=== PATIENT | male | born 1985 | race African-American/Black ===

== ENCOUNTER 2018-10-11 20:03 | Emergency (ER) | payer OTHER ==
--- NOTE | 2018-10-11 20:18 | PDOC ---
Rapid Medical Evaluation Medical Evaluation: I have performed a brief in-person evaluation of this patient. The patient presents with a chief complaint of: no sig pmh; states metal box fell on R knee Pertinent physical exam findings: Pain on ambulating R knee, no deformity, no swelling I have ordered the following: R knee xray, motrin The patient will proceed to the ED for further evaluation. 10/11/18 20:15
[2018-10-11 20:19] VITALS: BP 120/94; PULSE 70; TEMP 97.9; BMI 27.3
[2018-10-11] MEDS ORDERED: IBUPROFEN 400 MG TABLET (FP) PO ONE ×2 (20:19→21:08)
--- NOTE | 2018-10-11 21:11 | PDOC ---
History of Present Illness - General Chief Complaint: Pain, Acute Stated Complaint: R KNEE AND FOOT INJURY Time Seen by Provider: 10/11/18 20:15 - History of Present Illness Initial Comments: 10/11/18 21:08 33-year-old male without comorbidities presents for evaluation of leg pain. 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 He complains of pain anterior right leg and Past History - Past Medical History Allergies/Adverse Reactions: Allergies Allergy/AdvReac Type Severity Reaction Status Date / Time No Known Allergies Allergy Verified 10/11/18 20:17 Home Medications: Ambulatory Orders NK [No Known Home Medication] 10/11/18 COPD: No - Suicide/Smoking/Psychosocial Hx Smoking History: Never smoked Review of Systems - Review of Systems Musculoskeletal: Yes: See HPI *Physical Exam - Vital Signs Last Vital Signs Temp Pulse Resp BP Pulse Ox 97.9 F 70 18 120/94 100 10/11/18 20:17 10/11/18 20:17 10/11/18 20:17 10/11/18 20:17 10/11/18 20:17 - Physical Exam Comments: 10/11/18 21:08 Right knee lower leg foot and ankle skin color and temperature are normal. There are no abrasions. The patient is tender diffusely even to light touch which seems out of proportion to the examination. He refuses to move his ankle. His knee bends from 90 and he does have full extension. He is able to angulate and walk. He has no evidence of instability or gross sensorimotor deficits. He wiggles his toes. His calf is floppy. Moderate Sedation - Procedure Monitoring Vital Signs: Procedure Monitoring Vital Signs Temperature 97.9 F 10/11/18 20:17 Pulse Rate 70 10/11/18 20:17 Respiratory Rate 18 10/11/18 20:17 Blood Pressure 120/94 10/11/18 20:17 O2 Sat by Pulse Oximetry (%) 100 10/11/18 20:17 Medical Decision Making - Medical Decision Making 10/11/18 21:10 Present in the tib-fib foot and ankle have been reviewed and show no evidence of fracture trauma or destructive process. The examination, again, seems out of proportion to the level of pain at the patient's and. There is no pain with passive motion of the foot or toes. This is most likely a superficial contusion *DC/Admit/Observation/Transfer Diagnosis at time of Disposition: Contusion of leg, right - Discharge Dispostion Disposition: HOME Condition at time of disposition: Stable Decision to Admit order: No - Referrals Referrals: Thierno Palmer MD [Staff Physician] - - Patient Instructions Printed Discharge Instructions: Contusion Additional Instructions: Return as directed for pain. Return to the emergency room for worsening symptoms. He may weight-bear as tolerated with the use of crutches. Follow-up with orthopedic surgery in 1-2 days for further evaluation and treatment options. - Post Discharge Activity
== END 2018-10-11 21:43 | disposition home or self-care (01) ==
LOC: JERFT 20:03
DX: S80.11XA Contusion of right lower leg, initial encounter (principal); W20.8XXA Other cause of strike by thrown, projected or falling object, initial encounter; Y93.89 Activity, other specified; Y92.89 Other specified places as the place of occurrence of the external cause; Y99.0 Civilian activity done for income or pay
CPT/HCPCS: 73564-TC-RT-FY; 73590-TC-RT-FY; 73630-TC-RT-FY; 99281-25